=== PATIENT | male | born 1970 | race Caucasian/White ===

== ENCOUNTER 2025-06-01 22:58 | Emergency (ER) | payer OTHER ==
[~2025-06-01] VITALS: Ht 170.2 cm; Wt 72.6 kg
[2025-06-02] MEDS: DOXYCYCLINE HYCLATE (100 MG) 100 MG TABLET PO ONE
[2025-06-02 00:01] LABS: PLATELET COUNT (AUTO) 217 K/uL (150-450); RED BLOOD CELL COUNT(AUTO) 3.18 MIL/uL (4.5-6.0); RED CELL DISTRIBUTION WIDTH 16.6 % (11.5-15.0); WHITE BLOOD COUNT (AUTO) 3.5 K/uL (4.3-11.0)
[2025-06-02 00:28] LABS: CALCIUM, SERUM 8.8 mg/dL (8.5-10.1); CREATININE 1.1 mg/dL (0.6-1.3); SODIUM SERUM 140.0 mmol/L (136-145); UREA NITROGEN, BLOOD 21.0 mg/dL (7-18)
--- NOTE | 2025-06-02 00:47 | NUR ---
US TECH AT BEDSIDE
[2025-06-02] MEDS ORDERED: DOXYCYCLINE HYCLATE (100 MG) 100 MG TABLET ONE (00:50)
--- NOTE | 2025-06-02 01:06 | NUR ---
URINE SAMPLE COLLECTED.CALLED LAB TO PICK THE SPECIMEN UP
[2025-06-02] MEDS ORDERED: DOXY100C2 PO (01:09)
[2025-06-02 01:28] LABS: APPEARANCE,URINE CLOUDY (CLEAR); BLOOD, URINE TRACE-INTA Ery/uL (NEGATIVE); LEUKOCYTE ESTERASE ,URINE 3+ (NEGATIVE); NITRITE, URINE POSITIVE (NEGATIVE); UGLUCOSE NEGATIVE (NEGATIVE)
--- NOTE | 2025-06-02 01:36 | NUR ---
Patient discharged to [facility] in stable condition. Written and verbal after care instructions given. Patient verbalizes understanding of instruction.
[2025-06-02 01:38] VITALS: BP 135/81; TEMP 98.1; O2SAT 96
[2025-06-02 01:40] LABS: ADD URINE CULTURE YES; SQUAMOUS EPITHELIAL CELL,UR 0-2 /HPF (None Seen)
== END 2025-06-02 01:39 ==
LOC: ER 23:04
DX: N49.2 Inflammatory disorders of scrotum (principal)
CPT/HCPCS: 36415; 76870-TC; 80048-TC; 81001; 85025-TC; 87086-TC; 87186-TC